=== PATIENT | male | born 1965 | race Hispanic/Latino ===

== ENCOUNTER 2021-05-14 11:24 | Emergency (ER) | payer BC, SELFPAY ==
--- NOTE | ~2021-05-14 | XR_ITS ---
EXAMINATION: XR foot RT min 3V DATE: 05/14/2021 11:52 INDICATION: Right foot pain TECHNIQUE: Dorsoplantar, lateral, and 2 oblique views of the right foot were obtained. COMPARISON: None. FINDINGS: There is plantar soft tissue swelling of the foot. No fracture, location, or subluxation is identified. 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 No radiopaque foreign body is identified. IMPRESSION: 1. No acute osseous abnormality. Reviewed, dictated and finalized at location A. [facility]
[2021-05-14 11:29] VITALS: BP 158/97; PULSE 87; RESP 18; TEMP 36.9; O2SAT 98
--- NOTE | 2021-05-14 11:49 | ED.WOUNDLAC ---
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 Reports he stepped on a nail 3 days ago. He started to note yesterday that the area became painful, red and swollen. He is not up-to-date on tetanus. Denies fevers or drainage of the area. Related Data Allergies Allergy/AdvReac Type Severity Reaction Status Date / Time No Known Allergies Allergy Verified 05/14/21 11:33 Review of Systems Review of Systems: CONSTITUTIONAL: Denies fever SKIN: Reports erythema and edema All systems reviewed & are unremarkable except as noted in HPI and below PMFSH Past Medical History Medical History (Updated 05/14/21 @ 13:51 by Rina Navarrete PA-C) No active medical problems Social History Social History (Updated 05/14/21 @ 11:51 by Rina Navarrete PA-C) Smoking status: Never smoker Exam Narrative: GENERAL: Well-appearing, well-nourished, and in no acute distress. HEAD: Normocephalic, atraumatic. EYES: EOMI. EXTREMITIES: Normal range of motion. Mild-moderate edema and erythema to the plantar surface of the right foot surrounding small puncture wound. No abnormal drainage or fluctuance. Normal DP pulses. Normal sensation SKIN: Warm, dry, no rash. NEURO: No focal deficits. Alert and oriented x3. PSYCH: Normal mood and affect Course Vital Signs Vital signs: Vital Signs Temperature 98.4 F 05/14/21 11:29 Pulse Rate 87 05/14/21 11:29 Respiratory Rate 18 05/14/21 11:29 Blood Pressure 158/97 H 05/14/21 11:29 Pulse Oximetry 98 05/14/21 11:29 Temperature 98.4 F 05/14/21 11:29 Pulse Rate 87 05/14/21 11:29 Respiratory Rate 18 05/14/21 11:29 Blood Pressure 158/97 H 05/14/21 11:29 Pulse Oximetry 98 05/14/21 11:29 MDM - Wound/Laceration MDM Narrative Medical decision making narrative: Patient presents to the ER for right foot puncture wound sustained 3 days ago. Patient is afebrile and nontoxic-appearing. There is edema and erythema surrounding puncture wound. No evidence of abscess on exam. CBC with leukocytosis to 11. CRP is elevated to 5. Right foot x-ray without acute osseous abnormalities. Patient was updated on case findings. Will be started on oral antibiotics to cover for puncture wound. He is stable and felt appropriate for further outpatient evaluation. He was given warnings to return to the ER Lab Data Attestation: I reviewed the patient's lab results. Result diagrams: 05/14/21 11:57 05/14/21 11:57 Labs: Lab Results 05/14/21 05/14/21 Range/Units 11:57 11:57 WBC 11.0 H (4.5-10.0) K/mm3 RBC 4.89 (4.6-6.20) M/mm3 Hgb 15.7 (14.0-18.0) g/dL Hct 43.6 (42.0-52.0) % MCV 89.2 (80-100) fl MCH 32.1 (26-34) pg MCHC 36.0 (32-36) g/dl RDW 12.8 (11.5-14.5) % Plt Count 243 (150-375) k/mm3 MPV 9.8 (7.4-10.4) fl Immature Gran % (Auto) 0.2 (0-0.5) % Neut % (Auto) 80.0 H (45.5-73.1) % Lymph % (Auto) 13.0 L (18.3-44.2) % [place] % (Auto) 5.8 (2.6-8.5) % Eos % (Auto) 0.5 (0-4.4) % Baso % (Auto) 0.5 (0.2-1.2) % Lymph # (Auto) 1.43 (0.9-3.2) K/mm3 [place] # (Auto) 0.6 (0.1-0.6) K/mm3 Eos # (Auto) 0.1 (0-0.3) K/mm3 Baso # (Auto) 0.1 (0.0-0.1) K/mm3 Abs Immat Gran (auto) 0.02 (0.00-0.031) K/mm3 Absolute Neuts (auto) 8.8 H (1.3-6.7) K/mm3 Absolute Nucleated RBC 0.0 (0.0-0.012) K/mm3 Nucleated RBC % 0.0 (0.0-0.2) % ESR 20 (0-20) mm/hr Sodium 139 (137-145) mmol/L Potassium 3.8 (3.4-5.0) mmol/L Chloride 104 (98-107) mmol/L Carbon Dioxide 29 (22-30) mmol/L Anion Gap 6 L (8-16) mmol/L BUN
[2021-05-14] MEDS: TETANUS,DIPHTHERIA,AC PERTUSSIS ADULT (0.5 ML) BOOSTRIX IM (12:03)
[2021-05-14 12:05] LABS: Basophils Absolute Auto 0.1 K/mm3 (0.0-0.1); Basophils Percent Auto 0.5 % (0.2-1.2); Eosinophils Absolute Auto 0.1 K/mm3 (0-0.3); Eosinophils Percent Auto 0.5 % (0-4.4); Hematocrit 43.6 % (42.0-52.0); Hemoglobin 15.7 g/dL (14.0-18.0); Immature Granulocyte Absolute 0.02 K/mm3 (0.00-0.031); Immature Granulocyte Percent A 0.2 % (0-0.5); Lymphocytes Absolute Auto 1.43 K/mm3 (0.9-3.2); Mean Corpuscular Hemoglobin 32.1 pg (26-34); Mean Corpuscular Volume 89.2 fl (80-100); Mean Platelet Volume 9.8 fl (7.4-10.4); Monocytes Absolute Auto 0.6 K/mm3 (0.1-0.6); Monocytes Percent Auto 5.8 % (2.6-8.5); Neutrophils Absolute Auto 8.8 K/mm3 (1.3-6.7); Platelet Count Result 243 k/mm3 (150-375); Red Blood Count 4.89 M/mm3 (4.6-6.20); Red Cell Distribution Width 12.8 % (11.5-14.5)
[2021-05-14 12:20] LABS: Anion Gap 6 mmol/L (8-16); Blood Urea Nitrogen 14 mg/dL (9-20); Calcium 9.1 mg/dL (8.4-10.2); Carbon Dioxide 29 mmol/L (22-30); Chloride 104 mmol/L (98-107); Estimated CRCL calculation 76 ml/min; Estimated Glomerular Filt Rate > 60; Glucose 128 mg/dL (65-110); Potassium 3.8 mmol/L (3.4-5.0); Sodium 139 mmol/L (137-145)
[2021-05-14 12:43] LABS: Erythrocyte Sedimentation Rate 20 mm/hr (0-20)
[2021-05-14] MEDS: levoFLOXacin 750 MG TABLET PO (13:06)
[2021-05-14] MEDS: CEPHALEXIN 500 MG CAPSULE PO (13:06)
== END 2021-05-14 14:19 | disposition home or self-care (01) ==
PROVIDERS: Physician Assistant; Emergency Provider Emergency Medicine
DX: S91.331A Puncture wound without foreign body, right foot, initial encounter (principal); L03.115 Cellulitis of right lower limb; Z23 Encounter for immunization; W45.0XXA Nail entering through skin, initial encounter
CPT/HCPCS: 36415; 73630; 80048; 85025; 85652; 86140; 90471; 90715; 99283; A9270

== ENCOUNTER 2022-03-02 17:28 | Emergency (ER) | payer BC, SELFPAY ==
[2022-03-02 17:49] VITALS: BP 159/95; PULSE 79; RESP 16; TEMP 37.1; O2SAT 99
--- NOTE | 2022-03-02 18:25 | PC.NURSE ---
ekg in progress
--- NOTE | 2022-03-02 18:33 | ECG_ITS ---
Measurements Intervals [place] Rate: 73 P: 65 MA: 158 QRS: 56 QRSD: 89 T: 42 QT: 351 QTc: 389 Interpretive Statements SINUS RHYTHM BASELINE ARTIFACT- I, III, AVR, AVL, AVF, V5 NORMAL ECG Electronically Signed On 03-03-2022 6:40:12 CDT by Roger Ulrich D.O. NO PREVIOUS ECG AVAILABLE FOR COMPARISON Electronically Signed On 03-03-2022 8:24:15 CDT by Roger Ulrich D.O.
--- NOTE | 2022-03-02 18:37 | ED.URI ---
HPI - URI/Sore Throat General Chief Complaint: Upper Respiratory Infection Stated Complaint: Pain in left side of chest, chills, blurry vision Time Seen by Provider: 03/02/22 18:37 Source: patient Mode of arrival: ambulatory Limitations: no limitations History of Present Illness HPI Narrative: 56-year male presented for complaint of left-sided chest pain intermittently over the last 2 days. Pain is described as 'twisting inside and brief pulsing.' He endorses associated pain radiating down the left arm and feels that he cannot move the arm at times. He denies numbness, tingling, or weakness of the extremity. He endorses associated sweating with the pain and the pain radiates into the neck, back, and left upper shoulder. Patient also reports pain around the 'waist area' and bilateral groin for 2 days. Denies injury. Denies shortness of breath, wheezing, nausea, vomiting, diarrhea, dizziness, fever or chills. Pt is former smoker quit 10 years, denies medical history but does not follow with PCP. DIL is translating per pt request. Related Data Home Medications Medication Instructions Recorded Confirmed No Home Medications 03/02/22 03/02/22 Allergies Allergy/AdvReac Type Severity Reaction Status Date / Time No Known Allergies Allergy Verified 03/02/22 18:03 Review of Systems Review of Systems: CONSTITUTIONAL: Denies body aches, fever, chills, or sweats. EYES: Denies visual changes, redness, or discharge. ENT: Denies rhinorrhea, congestion, sore throat, or otalgia. CARDIOVASCULAR: Denies palpitations, or edema. RESPIRATORY: Denies dyspnea. GASTROINTESTINAL: Denies nausea, vomiting, or diarrhea. GENITOURINARY: Denies dysuria or hematuria. SKIN: Denies rash, itching, or wounds. MUSCULOSKELETAL: Denies back pain, joint pain, or myalgia. NEUROLOGIC: Denies headache, numbness, tingling, or weakness. All systems reviewed & are unremarkable except as noted in HPI and below PMFSH Past Medical History Medical History No active medical problems Social History Social History Smoking status: Never smoker Comments At time of signature, I have reviewed and agree with nursing past medical, surgical, social and family history unless otherwise noted. Please see nursing chart for further information. There is no relevant family history pertinent to the presenting complaint Exam Narrative: GENERAL: Well-appearing EYES: EOMI. No redness or drainage. Conjunctivae normal. ENT: Mucous membranes pink and moist. No rhinorrhea. NECK: Normal AROM. Supple. No lymphadenopathy. CHEST: No respiratory distress. Clear to auscultation. CP is not reproducible. HEART: Regular rate and rhythm. No murmur appreciated. Normal peripheral pulses. ABDOMEN: Soft, nontender, nondistended, normal active bowel sounds. Tender suprapubic area. EXTREMITIES: Normal range of motion. Nontender bilateral groin. No edema. SKIN: Warm, dry, no rash. Capillary refill normal. Normal skin turgor. NEURO: No focal deficits. Alert and oriented x3. Gait steady. Course Course Emergency Course: Patient is aware of diagnosis, understands and agrees to treatment plan. Anticipatory guidance given. Portions of this record may have been created with voice recognition software Level of Care: Express Care Visit Vital Signs Vital signs: Vital Signs Temperature 98.7 F 03/02/22 17:49 Pulse Rate 79 03/02/22 17:49 Respiratory Rate 16 03/02/22 17:49 Blood Pressure 159/95 H 03/02/22 17:49 Pulse Oximetry 99 03/02/22 17:49 Oxygen Delivery Room Air 03/02/22 17:49 Temperature 98.7 F 03/02/22 17:49 Pulse Rate 79 03/02/22 17:49 Respiratory Rate 16 03/02/22 17:49 Blood Pressure 159/95 H 03/02/22 17:49 Pulse Oximetry 99 03/02/22 17:49 Oxygen Delivery Room Air 03/02/22 17:49 Transfer Transfered to: Jared Tony
== END 2022-03-02 18:55 | disposition short-term general hospital (02) ==
PROVIDERS: Emergency Provider Nurse Practitioner Family
DX: R07.9 Chest pain, unspecified (principal)
CPT/HCPCS: 93005; 99213; G0463

== ENCOUNTER 2022-03-02 19:20 | Observation (INO) | payer BC, SELFPAY ==
--- NOTE | ~2022-03-02 | XR_ITS ---
EXAMINATION: XR chest 2V DATE: 03/02/2022 19:30 INDICATION: Chest pain. TECHNIQUE: Frontal and lateral views of the chest were obtained. COMPARISON: None. FINDINGS: There is mild scarring at the lung apices. No pleural effusion or pneumothorax. The heart s ize is normal. IMPRESSION: 1. Mild scarring at the lung apices. Reviewed, dictated and finalized at location A.
--- NOTE | 2022-03-02 19:21 | ECG_ITS ---
Measurements Rate 75 [place] 166 QRSd 75 QT 344 QTc 386 --[place]-- P 64 QRS 59 T 47 SINUS RHYTHM NORMAL ECG Electronically Signed On 03-02-2022 21:42:15 CDT by Roger Ulrich D.O. COMPARED TO ECG 03/02/2022 18:35:26 NO SIGNIFICANT CHANGES MTDD
[2022-03-02 19:31] VITALS: BP 147/79; PULSE 75; RESP 18; TEMP 36.7; O2SAT 100
[2022-03-02 19:48] LABS: Basophils Absolute Auto 0.1 K/mm3 (0.0-0.1); Basophils Percent Auto 0.8 % (0.2-1.2); Eosinophils Absolute Auto 0.2 K/mm3 (0-0.3); Eosinophils Percent Auto 1.9 % (0-4.4); Hematocrit 45.7 % (42.0-52.0); Hemoglobin 16.1 g/dL (14.0-18.0); Immature Granulocyte Absolute 0.03 K/mm3 (0.00-0.031); Immature Granulocyte Percent A 0.4 % (0-0.5); Lymphocytes Absolute Auto 1.59 K/mm3 (0.9-3.2); Mean Corpuscular HGB Conc 35.2 g/dl (32-36); Mean Corpuscular Hemoglobin 31.5 pg (26-34); Mean Corpuscular Volume 89.4 fl (80-100); Mean Platelet Volume 9.4 fl (7.4-10.4); Monocytes Absolute Auto 0.6 K/mm3 (0.1-0.6); Monocytes Percent Auto 7.5 % (2.6-8.5); Neutrophils Absolute Auto 5.5 K/mm3 (1.3-6.7); Neutrophils Percent Auto 69.4 % (45.5-73.1); Platelet Count Result 237 k/mm3 (150-375); Red Blood Count 5.11 M/mm3 (4.6-6.20); Red Cell Distribution Width 13.5 % (11.5-14.5)
[2022-03-02 20:00] LABS: INR 1.1; Partial Thromboplastin Time 31.5 SECONDS (22.3-36.8); Prothrombin Time 13.9 Seconds (11.1-14.7)
[2022-03-02 20:04] LABS: Alanine Aminotransferase 29 U/L (6-50); Albumin Level 4.7 g/dL (3.5-5.1); Alkaline Phosphatase 100 U/L (38-126); Anion Gap 14 mmol/L (8-16); Aspartate Amino Transferase 21 U/L (17-59); Bilirubin,Total 0.7 mg/dL (0.2-1.3); Blood Urea Nitrogen 13 mg/dL (9-20); Calcium 8.5 mg/dL (8.4-10.2); Carbon Dioxide 25 mmol/L (22-30); Chloride 103 mmol/L (98-107); Estimated CRCL calculation 78 ml/min; Estimated Glomerular Filt Rate > 60; Glucose 107 mg/dL (65-110); Lipase 39 U/L (23-300); Potassium 3.8 mmol/L (3.4-5.0); Sodium 142 mmol/L (137-145)
[2022-03-02 20:16] LABS: Troponin I < 0.012 ng/mL (0.000-0.034)
[2022-03-02] MEDS: ASPIRIN 81 MG CHEWABLE TABLET 324 MG PO (21:06)
--- NOTE | 2022-03-02 21:25 | ED.CHESTPAIN ---
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 Patient states that he first had an episode of chest pain on the left side of his chest that lasted for about 20 minutes at that time, came on while he was at rest and did radiate down his left arm. It was associated with some sweatiness. This resolved without intervention. The chest pain returned for about 5 minutes earlier today, began while patient was at rest again. Pain has been intermittent since then. Describes it as a tightness . He went to an urgent care facility who sent him to the emergency department. Patient has a remote smoking history in his 20s but has not smoked for the past 30 years. He has no other past medical history as reported by him. No nausea, vomiting, palpitations, headaches, unilateral weakness, speech difficulty, fevers or chills. Related Data Home Medications Medication Instructions Recorded Confirmed No Home Medications 03/02/22 03/03/22 Allergies Allergy/AdvReac Type Severity Reaction Status Date / Time No Known Allergies Allergy Verified 03/02/22 19:41 Review of Systems Review of Systems: Gen: Denies fevers or chills Eyes: Denies eye pain or visual change ENT: Denies congestion Respiratory: Denies shortness of breath or cough CV: Reports chest pain. GI: Denies abdominal pain nausea, emesis or diarrhea : denies burning, urgency, frequency or hematuria Musculoskeletal: Denies back pain or muscle pain Neuro: Denies numbness, tingling, weakness or focal weakness Skin: Denies rash Except as documented, all other systems reviewed and negative [facility] Past Medical History Medical History Former smoker Family History Family History Sibling Acute myocardial infarction Social History Social History Smoking packs per day: 1 Smoking cigarettes per day: 20.0 Years smoked: 40 Smoking pack-years: 40.00 Smoking status: Current every day smoker Tobacco type: cigarettes Second hand tobacco smoke exposure: Yes Alcohol intake: current Drinks per week: 2 Substance use: never Spiritual care concerns: No Exam Narrative: APPEARANCE: Well appearing, no pain in distress, well-nourished. Head: Normocephalic and atraumatic. EYES: PERRLA/EOMI, conjunctivae clear NOSE: No nasal drainage EARS: External ear normal in appearance THROAT: Oropharynx is clear. Mucous membranes are moist. NECK: Supple. No adenopathy, no masses. RESPIRATORY: Airway patent, respirations nonlabored. Clear to auscultation bilaterally, no rales, rhonchi, wheezing. CARDIOVASCULAR: Regular rate and rhythm without murmurs, rubs, or gallops. ABDOMINAL: Normoactive bowel sounds. Soft, nontender, nondistended. No rebound tenderness or guarding. MUSCULOSKELETAL: Extremities are warm and well-perfused. Moves all extremities well. No edema. NEURO: Cranial nerves II through XII intact. Normal speech. No focal neurologic deficits. SKIN: Skin is warm and dry. No rashes. PSYCHIATRIC: Normal affect/mood. Course Consultations Consultation #1: Spoke with Dr. Horn, who recommends admission and Lovenox given delta trop Date: 03/02/22 Time: 23:46 Vital Signs Vital signs: Vital Signs Temperature 98.0 F 03/02/22 19:31 Pulse Rate 75 03/02/22 19:31 Respiratory Rate 18 03/02/22 19:31 Blood Pressure 147/79 H 03/02/22 19:31 Pulse Oximetry 100 03/02/22 19:31 Oxygen Delivery Room Air 03/02/22 19:31 Temperature 97.9 F 03/03/22 08:00 Pulse Rate 79 03/03/22 10:00 Respiratory Rate 14 03/03/22 04:00 Blood Pressure 157/97 H 03/03/22 04:00 Pulse Oximetry
[2022-03-02 23:30] LABS: Troponin I 0.019 ng/mL (0.000-0.034)
[2022-03-02] MEDS: ENOXAPARIN 80 MG/0.8 ML SYRINGE SUB-Q (23:55)
[2022-03-03 02:30] VITALS: BP 118/81; PULSE 68; RESP 18; TEMP 36.9; O2SAT 94
[2022-03-03 04:00] VITALS: BP 157/97; PULSE 81; RESP 14; TEMP 36.8; O2SAT 99
[2022-03-03 04:25] VITALS: BMI 25.0
[2022-03-03 05:59] LABS: Troponin I < 0.012 ng/mL (0.000-0.034)
[2022-03-03 06:00] VITALS: PULSE 90
--- NOTE | 2022-03-03 07:35 | PM.IMHP ---
H&P: HPI History of Present Illness Date/Time: 03/03/22 07:35 [facility]LY [facility] Past Medical History Medical History Former smoker Family History Family History (Updated 03/03/22 @ 04:26 by Dulce De Jesus RN) Sibling Acute myocardial infarction Social History Social History Smoking packs per day: 1 Smoking cigarettes per day: 20.0 Years smoked: 40 Smoking pack-years: 40.00 Smoking status: Current every day smoker Tobacco type: cigarettes Second hand tobacco smoke exposure: Yes Alcohol intake: current Drinks per week: 2 Substance use: never Spiritual care concerns: No Meds Home Medications and Allergies Home Medications Medication Instructions Recorded Confirmed Type No Home Medications 03/02/22 03/03/22 History Allergies Allergy/AdvReac Type Severity Reaction Status Date / Time No Known Allergies Allergy Verified 03/02/22 19:41 Vital Signs Vital Signs - 24 hr 03/02/22 19:31 03/03/22 02:30 03/03/22 04:52 Temperature 98.0 F Pulse Rate 75 Respiratory Rate 18 Blood Pressure 147/79 H Pulse Oximetry 100 Oxygen Delivery Room Air Room Air Room Air 03/03/22 06:00 03/03/22 04:00 03/03/22 02:30 Temperature 98.3 F 98.5 F Pulse Rate 90 81 68 Respiratory Rate 14 18 Blood Pressure 157/97 H 118/81 Pulse Oximetry 99 94 Oxygen Delivery H&P: Results Labs Labs: Short CBC 03/02/22 Range/Units 19:41 WBC 8.0 (4.5-10.0) K/mm3 Hgb 16.1 (14.0-18.0) g/dL Hct 45.7 (42.0-52.0) % Plt Count 237 (150-375) k/mm3 BMP 03/02/22 19:41 Sodium 142 Potassium 3.8 Chloride 103 Carbon Dioxide 25 BUN 13 Creatinine 1.00 Glucose 107 Calcium 8.5 Cardiac Enzymes 03/02/22 03/02/22 03/03/22 Range/Units 19:41 23:04 05:28 Troponin I < 0.012 0.019 D < 0.012 D (0.000-0.034) ng/mL Liver Function 03/02/22 Range/Units 19:41 Total Bilirubin 0.7 (0.2-1.3) mg/dL AST 21 (17-59) U/L ALT 29 (6-50) U/L Alkaline Phosphatase 100 (38-126) U/L Albumin 4.7 (3.5-5.1) g/dL Assessment and Plan Assessment and plan (1) Elevated troponin: Code(s): R77.8 - Other specified abnormalities of plasma proteins Status: Acute Assessment and Plan: trend troponin, monitor telemetry, repeat ECG, appreciate cardio consult pending, do not suspect cardiac etiology at this time (2) Chest pain: Code(s): R07.9 - Chest pain, unspecified Status: Acute Plan DVT prophylaxis with lovenox GI prophylaxis not indicated Code status full code
[2022-03-03 08:00] VITALS: PULSE 81; TEMP 36.6
[2022-03-03 09:27] VITALS: O2SAT 98
[2022-03-03 10:00] VITALS: PULSE 79
--- NOTE | 2022-03-03 10:13 | PM.CNCAR ---
Assessment and Plan Assessment and plan (1) Chest pain: Code(s): R07.9 - Chest pain, unspecified Status: Acute Plan this is a 56-year-old gentleman without prior cardiac history who had a couple of episodes of nonexertional diaphoresis and chest pain earlier this week he is asymptomatic currently. Acute coronary syndrome has been ruled out by serial troponins and electrocardiograms. He does not have any exertional symptoms. Risk factors include previous smoking and family history. At this point he is stable I believe he can be discharged and I would recommend outpatient exercise stress testing. I will direct my office to make an appointment for that before he leaves today. his electrocardiogram is unremarkable so he should be able to do a standard exercise stress test Ayo Winslow MD [facility] History of Present Illness History of Present Illness Consult date/time: 03/03/22 10:13 Consult reason: chest pain Reason For Visit: Chest Pain Narrative: This is a 56-year-old gentleman I am seeing at the request of the hospitalist because of chest pain. His history is obtained through a stone polisher as he speaks no Albanian. The patient has no history of cardiac problems that he can remember he came into the hospital through the emergency room yesterday because of symptoms that he had for the previous 2 days they describes as episodes of sudden diaphoresis and weakness. Associated with these episodes was some very modest central chest discomfort as well. 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 His same thing happened yesterday so he came into the emergency room. He does not have any exertional symptoms he states he can and exercised any level that he needs to or desires without triggering any chest pain. Does not have exertional dyspnea orthopnea PND edema palpitations or syncope. In the emergency room he was free of symptoms his electrocardiogram looked normal and has remained normal. He has 3 sets of troponins that are within normal limits. He feels well this morning and does not have any other complaints. He is a former smoker he quit smoking couple of decades ago he does state that 1 brother has had a myocardial infarction. Review of Systems Constitutional: Constitutional: Reports no additional constitutional complaints Eyes: Eyes: Reports no additional eye complaints ENT: Reports system reviewed and no additional complaints, except as documented Cardiovascular: Cardiovascular: Reports as per HPI Respiratory: Respiratory: Reports no additional respiratory complaints Gastrointestinal: Gastrointestinal: Reports no additional gastrointestinal complaints Musculoskeletal: Musculoskeletal: Reports no additional musculoskeletal complaints Integumentary/Breasts: Skin/Breast: Reports system reviewed and no additional complaints, except as docu Neurologic: Reports system reviewed and no additional complaints, except as documented Endocrine: Endocrine: Reports no additional endocrine complaints Hematologic/Lymphatic: Hematologic/Lymphatic: Reports no additional hematologic/lymphatic complaints Allergic/Immunologic: Allergic/Immunologic: Reports no additional allergic/immunologic complaints [facility] Past Medical History Medical History Former smoker Family History Family History (Updated 03/03/22 @ 04:26 by Dluce De Jesus RN) Sibling Acute myocardial infarction Social History Social History Smoking packs per day: 1 Smoking cigarettes per day: 20.0 Years smoked: 40 Smoking pack-years: 40.00 Smoking status: Current every day smoker Tobacco type: cigarettes Second hand tobacco smoke exposure: Yes Alcohol intake: current Drinks per week: 2 Substance use: never Spiritual care con
--- NOTE | 2022-03-03 11:08 | PM.SD2 ---
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 Patient states that he first had an episode of chest pain on the left side of his chest that lasted for about 20 minutes at that time, came on while he was at rest and did radiate down his left arm.? It was associated with some sweatiness. This resolved without intervention.? The chest pain returned for about 5 minutes earlier today, began while patient was at rest again.? Pain has been intermittent since then. Describes it as a tightness . He went to an urgent care facility who sent him to the emergency department.? Patient has a remote smoking history in his 20s but has not smoked for the past 30 years.? He has no other past medical history as reported by him.? No nausea, vomiting, palpitations, headaches, unilateral weakness, speech difficulty, fevers or chills. PMFSH Past Medical History Medical History Former smoker Family History Family History Sibling Acute myocardial infarction Social History Social History Smoking packs per day: 1 Smoking cigarettes per day: 20.0 Years smoked: 40 Smoking pack-years: 40.00 Smoking status: Current every day smoker Tobacco type: cigarettes Second hand tobacco smoke exposure: Yes Alcohol intake: current Drinks per week: 2 Substance use: never Spiritual care concerns: No Same Day Admit/Disch: Med Pre-admit Medications Home Medications Medication Instructions Recorded Confirmed Type No Home Medications 03/02/22 03/03/22 History Exam Narrative: General: No acute distress, alert and oriented per baseline HEENT: Atraumatic, normocephalic, mucous membranes moist CV: Regular rate and rhythm, S1, S2 Lungs: Clear to auscultation bilaterally, no rales or crackles noted, no wheezes, good air entry Abdomen: Soft, nontender, nondistended Extremities: Normal to inspection Skin: No rashes noted, no lesions or wounds seen Psych: Euthymic, normal affect DS: Data Data Completed and Pending Labs on day of discharge: Labs from last 24 hours 03/03/22 03/02/22 03/02/22 05:28 23:04 19:41 WBC RBC Hgb Hct MCV MCH MCHC RDW Plt Count MPV Immature Gran % (Auto) Neut % (Auto) Lymph % (Auto) [place] % (Auto) Eos % (Auto) Baso % (Auto) Lymph # (Auto) [place] # (Auto) Eos # (Auto) Baso # (Auto) Abs Immat Gran (auto) Absolute Neuts (auto) Absolute Nucleated RBC Nucleated RBC % PT INR APTT Sodium 142 Potassium 3.8 Chloride 103 Carbon Dioxide 25 Anion Gap 14 BUN 13 Creatinine 1.00 Estim Creat Clear Calc 78 Estimated GFR > 60 Glucose 107 Calcium 8.5 Total Bilirubin 0.7 AST 21 ALT 29 Alkaline Phosphatase 100 Troponin I < 0.012 D 0.019 D < 0.012 Total Protein 8.0 Albumin 4.7 Lipase 39 03/02/22 03/02/22 19:41 19:41 WBC 8.0 RBC 5.11 Hgb 16.1 Hct 45.7 MCV 89.4 MCH 31.5 MCHC 35.2 RDW 13.5 Plt Count 237 MPV 9.4 Immature Gran % (Auto) 0.4 Neut % (Auto) 69.4 Lymph % (Auto) 20.0 [place] % (Auto) 7.5 Eos % (Auto) 1.9 Baso % (Auto) 0.8 Lymph # (Auto) 1.59 [place] # (Auto) 0.6 Eos # (Auto) 0.2 Baso # (Auto) 0.1 Abs Immat Gran (auto) 0.03 Absolute Neuts (auto) 5.5 Absolute Nucleated RBC 0.0 Nucleated RBC % 0.0 PT 13.9 INR 1.1 APTT 31.5 Sodium Potassium Chloride Carbon Dioxide Anion Gap BUN Creatinine Estim Creat Clear Calc Estimated GFR Glucose Calcium Total Bilirubin AST ALT Alkaline Phosphatase Troponin I Total Protein Albumin Lipase
== END 2022-03-03 13:00 | disposition home or self-care (01) ==
LOC: ANHED 03-03 00:36 → ANHICU 03-03 04:46
PROVIDERS: Emergency Medicine; Admitting Provider Internal Medicine; Emergency Provider Emergency Medicine; Visit Provider Student in an Organized Health Care Education/Training Program
DX: R07.9 Chest pain, unspecified (principal); R61 Generalized hyperhidrosis; F17.210 Nicotine dependence, cigarettes, uncomplicated; Z82.49 Family history of ischemic heart disease and other diseases of the circulatory system
CPT/HCPCS: 36415; 71046; 80053; 83690; 84484; 85025; 85610; 85730; 93005; 96372; 99285; A9270; G0378; J1650

== ENCOUNTER 2022-06-19 11:57 | Emergency (ER) | payer OTHER, SELFPAY ==
[2022-06-19 12:09] VITALS: BP 149/84; PULSE 82; RESP 16; TEMP 37; O2SAT 99
--- NOTE | 2022-06-19 12:17 | ED.GENADULT ---
HPI - General Adult General Chief complaint: Urogenital-Male Stated complaint: Anal Problems Time Seen by Provider: 06/19/22 12:17 Source: patient, RN notes reviewed and old records reviewed Mode of arrival: ambulatory Limitations: no limitations History of Present Illness HPI narrative: 56-year-old male presents to the [facility] with wanting to see if he has hemorrhoids. Presents with daughter in-law, wants to use [id number] as a baker doughnut. Phone baker doughnut offered, patient and [id number] declined Related Data Allergies Allergy/AdvReac Type Severity Reaction Status Date / Time No Known Allergies Allergy Verified 06/19/22 12:10 Review of Systems Review of Systems: All systems reviewed & are unremarkable except as noted in HPI and below Constitutional: Constitutional: Reports no additional constitutional complaints Eyes: Eyes: Reports no additional eye complaints ENT: Reports system reviewed and no additional complaints, except as documented Cardiovascular: Cardiovascular: Reports no additional cardiovascular complaints, Denies chest pain and Denies dyspnea Respiratory: Respiratory: Reports no additional respiratory complaints, Denies chest congestion, Denies cough and Denies dyspnea Gastrointestinal: Gastrointestinal: Reports as per HPI, Denies abdominal pain, Denies bloating, Denies constipation, Denies diarrhea, Denies nausea and Denies vomiting Comments: Tenderness at the rectum with swelling Musculoskeletal: Musculoskeletal: Reports no additional musculoskeletal complaints Integumentary/Breasts: Skin/Breast: Reports system reviewed and no additional complaints, except as docu Neurologic: Reports system reviewed and no additional complaints, except as documented Psychiatric: Psychiatric: Reports no additional psychiatric complaints Allergic/Immunologic: Allergic/Immunologic: Reports no additional allergic/immunologic complaints [facility] Past Medical History Medical History Former smoker Family History Family History Sibling Acute myocardial infarction Social History Social History Smoking packs per day: 1 Smoking cigarettes per day: 20.0 Years smoked: 40 Smoking pack-years: 40.00 Smoking status: Current every day smoker Tobacco type: cigarettes Second hand tobacco smoke exposure: Yes Alcohol intake: current Drinks per week: 2 Substance use: never Spiritual care concerns: No Comments At the time of my signature, I reviewed and agree with the nursing past medical, surgical, social, and family history. There is no relevant family history pertinent to the patient complaint. Exam Const: General: cooperative, healthy appearing, comfortable, no acute distress, well developed, alert and well nourished Nutritional Appearance: well nourished Orientation/consciousness: patient oriented x3 Limitations: no limitations HENMT: Head: normal to inspection Ears: hearing grossly normal bilaterally and external ears normal Face/Nose/Sinus: Normal external nose present, Normal nares present, Normal nasal mucous membranes and turbinates present and normal facial exam Face and sinus: normal facial exam Mouth: Yes Normal oral and palatal mucosa present, Yes lip normal and Yes moist mucous membranes Eyes: General: appearance normal, both eyes and all related structures Alignment and Position: alignment normal Periorbital: periorbital findings normal Conjunctivae: conjunctivae normal Pupils: Equal, round and reactive pupils present EOM: EOMs intact bilaterally Neck: Neck: normal visual inspection, full ROM, no lymphadenopathy and no meningeal signs Chest: Chest palpation & inspection: normal inspection of the chest Resp: Effort & Inspection: normal respiratory effort and able to speak in complete sentences Auscultation: clear to auscultation bilaterally, no crackles, no r
== END 2022-06-19 12:36 | disposition home or self-care (01) ==
PROVIDERS: Emergency Provider Nurse Practitioner; PCP Registered Nurse
DX: K64.9 Unspecified hemorrhoids (principal)
CPT/HCPCS: 99213; G0463

== ENCOUNTER 2023-06-01 16:57 | Emergency (ER) | payer OTHER, SELFPAY ==
[2023-06-01] VITALS (29 sets, daily range): BP systolic 117–146; BP diastolic 77–89; PULSE 72–96; RESP 12–74; TEMP 36.5–36.8; O2SAT 98–100
--- NOTE | ~2023-06-01 | CT_ITS ---
EXAMINATION: CT abdomen pelvis w con DATE: 06/01/2023 19:03 INDICATION: Epigastric pain and blood in stool TECHNIQUE: Computed tomography (CT) of the abdomen and pelvis was performed with 100 mL Omnipaque-350 intravenous contrast. Automated exposure control and iterative reconstruction technique were employe d. The dose-length product was 479.91 mGy-cm. COMPARISON: None FINDINGS: Mild emphysema and mild atelectasis at the bilateral lung bases. Heart size is normal. No pericardial or pleural effusion. Liver, gallbladder, spleen, pancreas, bilateral adrenal glands and kidneys are normal. There are few scattered colonic diverticula without adjacent inflammatory stranding to sugges t diverticulitis. Small bowel and appendix are normal. Bladder is normal. Mild prostatomegaly measuri ng 4.5 x 3.3 cm. No free intraperitoneal gas or fluid. No pathologically enlarged abdominal or pelvic lymphadenopathy. Very small fat-containing umbilical hernia. Moderate to severe spondylosis lumbosac ral junction with mild spondylosis in the more cephalad lumbar and lower thoracic spine. IMPRESSION: 1. A few scattered diverticula without evident diverticulitis. No other acute intra-abdominal/pelvic process. 2. Mild prostatomegaly. Reviewed, dictated and finalized at location A. [facility] [employer] IMPRESSION: 1. A few scattered diverticula without evident diverticulitis. No other acute i ntra-abdominal/pelvic process. 2. Mild prostatomegaly.
[2023-06-01 17:32] LABS: Basophils Percent Auto 0.6 % (0.2-1.2); Eosinophils Absolute Auto 0.1 K/mm3 (0-0.3); Eosinophils Percent Auto 1.9 % (0-4.4); Hematocrit 43.6 % (42.0-52.0); Hemoglobin 14.9 g/dL (14.0-18.0); Immature Granulocyte Absolute 0.02 K/mm3 (0.00-0.031); Immature Granulocyte Percent A 0.3 % (0-0.5); Lymphocytes Percent Auto 25.8 % (18.3-44.2); Mean Corpuscular HGB Conc 34.2 g/dl (32-36); Mean Corpuscular Hemoglobin 30.8 pg (26-34); Mean Corpuscular Volume 90.3 fl (80-100); Mean Platelet Volume 9.6 fl (7.4-10.4); Monocytes Absolute Auto 0.5 K/mm3 (0.1-0.6); Monocytes Percent Auto 7.7 % (2.6-8.5); Neutrophils Absolute Auto 3.9 K/mm3 (1.3-6.7); Neutrophils Percent Auto 63.7 % (45.5-73.1); Platelet Count Result 230 k/mm3 (150-375); Red Blood Count 4.83 M/mm3 (4.6-6.20); Red Cell Distribution Width 13.1 % (11.5-14.5); White Blood Count 6.2 K/mm3 (4.5-10.0)
[2023-06-01 17:41] LABS: Alanine Aminotransferase 35 U/L (6-50); Albumin Level 4.1 g/dL (3.5-5.1); Alkaline Phosphatase 113 U/L (38-126); Anion Gap 6 mmol/L (8-16); Aspartate Amino Transferase 28 U/L (17-59); Bilirubin,Total 0.6 mg/dL (0.2-1.3); Blood Urea Nitrogen 16 mg/dL (9-20); Calcium 8.2 mg/dL (8.4-10.2); Carbon Dioxide 27 mmol/L (22-30); Chloride 107 mmol/L (98-107); Estimated CRCL calculation 84 ml/min; Estimated Glomerular Filt Rate > 60; Glucose 100 mg/dL (65-110); Potassium 3.9 mmol/L (3.4-5.0); Sodium 140 mmol/L (137-145)
[2023-06-01 17:46] LABS: Partial Thromboplastin Time 30.9 SECONDS (22.3-36.8)
--- NOTE | 2023-06-01 18:41 | ECG_ITS ---
Measurements Intervals [place] Rate: 72 P: 65 NH: 160 QRS: 34 QRSD: 85 T: 0 QT: 370 QTc: 405 Interpretive Statements SINUS RHYTHM WITHIN NORMAL LIMITS COMPARED TO ECG 03/02/2022 19:35:02 NO SIGNIFICANT CHANGES Electronically Signed On 06-02-2023 7:35:53 [employer] by Ayo Winslow M.D.
--- NOTE | 2023-06-01 18:43 | ED.GIBLEED ---
HPI - GI Bleed General Chief complaint: GI Bleed Stated complaint: vomitting, diarrhea, blood in stool Time Seen by Provider: 06/01/23 17:50 History of Present Illness HPI Narrative: 57 y/o M reports for evaluation for bloody stools x2 that started yesterday. Patient states about 3-4 days ago, he had an episode of vomiting and diarrhea which then resolved. States he is feeling better and then last night had an episode of diarrhea with bright red blood in the toilet bowl. He states today in afternoon while at work, he had another episode of bloody diarrhea which prompted him to come to the ED for further evaluation. He is reporting associated mild epigastric pain with no aggravating or alleviating factors. He does endorse a history of hemorrhoids which were treated a few months ago with Proctofoam. Patient denies history of gastric ulcers, Crohn's or UC, colon cancer, rectal pain, chest pain or shortness of breath, syncope, dizziness or lightheadedness, dysuria or hematuria, fever. Denies recent surgeries or hospitalizations, travel antibiotic use. He is not anticoagulated. He has never had a colonoscopy. He does have a primary care provider. Related Data Allergies Allergy/AdvReac Type Severity Reaction Status Date / Time No Known Allergies Allergy Verified 06/19/22 12:10 Review of Systems Review of Systems: CONSTITUTIONAL: Denies fever, chills, or sweats. EYES: Denies visual changes, redness, or discharge. ENT: Denies rhinorrhea, congestion, sore throat, or otalgia. CARDIOVASCULAR: Denies chest pain, palpitations, or edema. RESPIRATORY: Denies cough or dyspnea. GASTROINTESTINAL: See HPI GENITOURINARY: Denies dysuria or hematuria. SKIN: Denies rash or itching. MUSCULOSKELETAL: Denies back pain, joint pain, or myalgia. NEUROLOGIC: Denies headache, numbness, or weakness. PSYCHIATRIC: Denies anxiety or depression. [facility] Past Medical History Medical History Former smoker Family History Family History Sibling Acute myocardial infarction Social History Social History Smoking packs per day: 1 Smoking cigarettes per day: 20.0 Years smoked: 40 Smoking pack-years: 40.00 Smoking status: Current every day smoker Tobacco type: cigarettes Second hand tobacco smoke exposure: Yes Alcohol intake: current Drinks per week: 2 Substance use: never Spiritual care concerns: No Exam Narrative: GENERAL: Well-appearing, well-nourished, and in no acute distress. Patient resting comfortably examined. He is pleasant and conversational. HEAD: Normocephalic, atraumatic. EYES: PERRLA and EOMI. ENT: Nares clear, no rhinorrhea or epistaxis. Mucous membranes moist. NECK: Supple. CHEST: Clear to auscultation. No respiratory distress. HEART: Regular rate and rhythm. No murmur heard. Normal peripheral pulses. ABDOMEN: Normoactive bowel sounds. Abdomen soft with mild tenderness in epigastrium. No guarding, rebound or rigidity. No CVA tenderness. Negative Steel's. No fissures or external hemorrhoids appreciated. No internal hemorrhoids palpable. No gross melena or hematochezia on digital rectal exam. Hemoccult positive. EXTREMITIES: Normal range of motion. No edema. SKIN: Warm, dry, no rash. NEURO: No focal deficits. Alert and oriented x3 Course Vital Signs Vital signs: Vital Signs Temperature 98.3 F 06/01/23 17:06 Pulse Rate 87 06/01/23 17:06 Respiratory Rate 18 06/01/23 17:06 Blood Pressure 146/87 H 06/01/23 17:06 Pulse Oximetry 98 06/01/23 17:06 Oxygen Delivery Room Air 06/01/23 17:06 Temperature 97.8 F 06/01/23 19:16 Pulse Rate 74 06/01/23 20:22 Respiratory Rate 12 06/01/23 20:22 Blood Pressure 126/80 06/01/23 20:22 Pulse Oximetry 100 06/01/23 20:22 Oxygen Delivery Room Air 06/01/23 17:06 MDM - GI Bleed MDM Narrative Medical d
[2023-06-01] MEDS: PANTOPRAZOLE SODIUM IV 40 MG VIAL IV PUSH (19:01)
[2023-06-01] MEDS: SODIUM CHLORIDE 0.9% IV 1,000 ML 999 ML IV CONT (19:01)
[2023-06-01 19:07] LABS: Lipase 42 U/L (23-300)
[2023-06-01 20:21] LABS: Appearance Urine Clear (Clear); Bilirubin Urine Negative (Negative); Blood Urine Negative (Negative); Color Urine Yellow (Yellow); Glucose Urine UA Negative (Negative); Ketones Urine Negative (Negative); Leukocyte Esterase Ur Negative LEU/UL (Negative); Nitrate Urine Negative (Negative); Protein Urine Negative (Negative)
[2023-06-01 20:23] LABS: Add Urine Microscopic? NO; Specific Grav Ur 1.054 (1.001-1.035)
== END 2023-06-01 21:51 | disposition home or self-care (01) ==
PROVIDERS: Emergency Medicine; Emergency Provider Physician Assistant; PCP Registered Nurse
DX: K92.1 Melena (principal); Z87.891 Personal history of nicotine dependence; N40.0 Benign prostatic hyperplasia without lower urinary tract symptoms
CPT/HCPCS: 36415; 74177; 80053; 81003; 83690; 85025; 85610; 85730; 86850; 86900; 86901; 93005; 96361; 96374; 99284; C9113; J7030; Q9967